=== PATIENT | female | born 1980 | race Caucasian/White ===

== ENCOUNTER 2020-12-14 04:41 | Emergency (ER) | payer OTHER ==
[2020-12-14 05:15] LABS: BASOPHIL 0.5 % (0-2); EOSINOPHIL 2.3 % (0-5); HCT 39.9 % (37.0-47.0); HGB 13.5 g/dl (12.5-16.0); LYMPHOCYTE 20.7 % (15-48); MCHC 33.8 g/dL (32.0-36.0); MCV 88.7 fL (78.0-100.0); MONOCYTE 7.7 % (0-12); MPV 10.4 fL (6.0-9.5); NEUTROPHIL 68.3 % (41-80); NRBC 0; PLT 291 K/uL (150-400); RDW 13.9 % (11.5-14.0); WBC 8.2 K/uL (4.0-10.5)
[2020-12-14 05:25] LABS: ALBUMIN 3.7 g/dL (3.4-5.0); BILIRUBIN - TOTAL 0.3 mg/dL (0.2-1.0); BUN/CREAT RATIO (CALC) 24.6 RATIO; CREATININE 0.69 mg/dL (0.51-0.95); GLOBULIN (CALCULATION) 4.5 g/dL; POTASSIUM 3.6 mmol/L (3.5-5.1); TOTAL PROTEIN 8.2 g/dL (6.4-8.2)
[2020-12-14] MEDS ORDERED: ONDANSETRON ODT4 MG PO (06:40)
[2020-12-14] MEDS ORDERED: IMITREX50 MG PO (06:40)
== END 2020-12-14 06:55 | disposition home or self-care (01) ==
LOC: FER 04:41
PROVIDERS: Emergency Medicine
DX: G43.909 Migraine, unspecified, not intractable, without status migrainosus (principal); F17.290 Nicotine dependence, other tobacco product, uncomplicated
CPT/HCPCS: 36415; 70450; 80053; 85025; J0780; J1200; J1885; J7030